=== PATIENT | female | born 1965 | race Caucasian/White ===

== ENCOUNTER 2021-05-05 15:40 | Outpatient (CLI) | payer OTHER, SELFPAY ==
--- NOTE | ~2021-05-05 | MM_ITS ---
EXAMINATION: MM screening dolores BI w maria teresa HISTORY: Screening TECHNIQUE: Craniocaudal and mediolateral oblique 3-D tomosynthesis images were obtained and synthetic 2-D images were generated. CAD analysis was submitted and interpreted. COMPARISON: 03/19/2012 BREAST PARENCHYMAL COMPOSITION: There are scattered areas of fibroglandular density. FINDINGS: There is no evidence of suspicious mass, calcification, or architectural distortion to sugg est malignancy in either breast. There has been no suspicious interval change. IMPRESSION: 1. No mammographic evidence of malignancy. 2. Recommend routine screening mammography in one year. BI-RADS Category 1: Negative Reviewed, dictated and finalized at location A.
== END 2021-05-05 15:41 | disposition home or self-care (01) ==
LOC: ANHIMG 15:43
PROVIDERS: PCP Family Medicine; Visit Provider Physician Assistant
DX: Z12.31 Encounter for screening mammogram for malignant neoplasm of breast (principal)
CPT/HCPCS: 77063; 77067

== ENCOUNTER 2021-05-28 09:18 | Outpatient (CLI) | payer OTHER, SELFPAY ==
--- NOTE | ~2021-05-28 | XR_ITS ---
EXAMINATION: XR elbow RT min 3V DATE: 05/28/2021 09:34 INDICATION: Nontraumatic right elbow pain TECHNIQUE: Anteroposterior, two oblique and lateral views of the right elbow were obtained. COMPARISON: None. FINDINGS: Alignment is normal. No fracture or joint effusion. Joint spaces are normal. No erosions or osteophyt osis. Soft tissues are unremarkable. IMPRESSION: 1. Normal right elbow radiographs. Reviewed, dictated and finalized at location B.
== END 2021-05-28 09:19 | disposition home or self-care (01) ==
PROVIDERS: PCP Family Medicine; Visit Provider Family Medicine
DX: M25.521 Pain in right elbow (principal)
CPT/HCPCS: 73080

== ENCOUNTER 2024-03-12 14:19 | Emergency (ER) | payer OTHER, SELFPAY ==
--- NOTE | 2024-03-12 14:20 | ED.URI ---
HPI - URI/Sore Throat General Chief Complaint: Ear Stated Complaint: EARS/COLD SYMPTOMS Time Seen by Provider: 03/12/24 14:28 Source: patient, RN notes reviewed and old records reviewed Mode of arrival: ambulatory Limitations: no limitations History of Present Illness HPI Narrative: 58-year-old female presents to the [facility] with complaints sinus congestion, pressure for 4 weeks. Has tried OTC medications with no relief. Reports ear pressure Denies fevers Treatments prior to arrival: cold medicine Related Data Allergies Allergy/AdvReac Type Severity Reaction Status Date / Time doxycycline Allergy Unknown Skin Verified 03/12/24 14:26 Reaction latex Allergy Unknown Unknown Verified 03/12/24 14:26 Sulfa (Sulfonamide Allergy Unknown Skin Verified 03/12/24 14:26 Antibiotics) Reaction sulfamethizole Allergy Unknown Unknown Verified 03/12/24 14:26 Review of Systems Review of Systems: All systems reviewed & are unremarkable except as noted in HPI and below Constitutional: Constitutional: Reports no additional constitutional complaints Eyes: Eyes: Reports no additional eye complaints ENT: Reports as per HPI, Reports otalgia, Reports sinus pressure and Denies sore throat Cardiovascular: Cardiovascular: Reports no additional cardiovascular complaints, Denies chest pain and Denies dyspnea Respiratory: Respiratory: Reports no additional respiratory complaints, Denies chest congestion, Denies cough and Denies dyspnea Gastrointestinal: Gastrointestinal: Reports no additional gastrointestinal complaints, Denies abdominal pain, Denies nausea and Denies vomiting Musculoskeletal: Musculoskeletal: Reports no additional musculoskeletal complaints Integumentary/Breasts: Skin/Breast: Reports system reviewed and no additional complaints, except as docu Neurologic: Reports system reviewed and no additional complaints, except as documented Psychiatric: Psychiatric: Reports no additional psychiatric complaints Allergic/Immunologic: Allergic/Immunologic: Reports no additional allergic/immunologic complaints [facility] Past Medical History Medical History History of COVID-19 Family History Family History Father Acute myocardial infarction Diabetes mellitus, Onset Age: 87 Family history of cardiovascular disease, Onset Age: 87 Family history of coronary artery disease, Onset Age: 87 Mother Acute myocardial infarction Family history of glaucoma Hypertension Family history of cardiovascular disease Family history of coronary artery disease Sibling Malignant neoplasm of prostate Social History Social History Social History: Caffeine-soda Smoking status: Never smoker Second hand tobacco smoke exposure: No Alcohol intake: current Alcohol use details: socially Substance use: never Substance use type: does not use Do You Feel Safe in your Home?: Yes Lack of Transportation: No Lack of Food: Never True Current Housing: I Have Housing Concerned About Future Housing: No Difficulty Paying Gas/Electric Bills: No Difficulty Paying for Meds: No Currently Unemployed: No Education: Associate Degree Difficulty w/ Childcare or Family Care: No Comments At the time of my signature, I reviewed and agree with the nursing past medical, surgical, social, and family history. There is no relevant family history pertinent to the patient complaint. Exam Const: General: cooperative, healthy appearing, comfortable, no acute distress, well developed, alert and well nourished Nutritional Appearance: well nourished Orientation/consciousness: patient oriented x3 Limitations: no limitations HENMT: Head: normal to inspection Ears: hearing grossly normal bilaterally, external ears normal, EAC's normal, mastoids normal, no periauricular
[2024-03-12 14:28] VITALS: BP 111/74; PULSE 67; RESP 16; TEMP 36.2; O2SAT 99
== END 2024-03-12 14:40 | disposition home or self-care (01) ==
PROVIDERS: Emergency Provider Nurse Practitioner; PCP Family Medicine
DX: J01.40 Acute pansinusitis, unspecified (principal); Z86.16 Personal history of COVID-19
CPT/HCPCS: 99213; G0463

== ENCOUNTER 2024-04-18 14:42 | Outpatient (CLI) | payer OTHER, SELFPAY ==
--- NOTE | ~2024-04-18 | MR_ITS ---
MR brain/brain stem wo/w con Ordering provider: Mia Ibanez MD History: 58 years Female with . brainstem lesion surveillance . Comparison: June 12, 2018 Technique: MRI brain was performed with and without contrast. 15 mL of MultiHance was injected IV. FINDINGS: BONES: Normal. CRANIOCERVICAL JUNCTION: normal. PITUITARY: Normal. MAJOR INTRACRANIAL VESSELS: Normal flow void. OPTIC NERVES AND CRANIAL NERVES VII AND VIII COMPLEXES: Grossly normal. BRAIN PARENCHYMA AND CSF SPACES: No visible white matter disease. The bright signal seen in the ri ght brachium pontis is again demonstrated with no change from previous examination. The brainstem and cerebellum are normal. No acute or chronic intracranial hemorrhage. No extra axial fluid collections . Diffusion weighted and ADC mapping images reveal no recent ischemia. No midline shift or mass effec t. No abnormal contrast enhancement. PARANASAL SINUSES: Normal. MASTOIDS: Normal SUPERFICIAL/SURROUNDING SOFT TISSUES: Normal. IMPRESSION: 1. The bright signal seen in the right brachium pontis measuring 8 x 8 mm is again demonstrated with no change from previous examination. 2. No abnormal enhancement. Reviewed, dictated and finalized at location A. IMPRESSION: 1. The bright signal seen in the right brachium pontis measuring 8 x 8 mm is a gain demonstrated with no change from previous examination. 2. No abnormal enhancement.
== END 2024-04-18 14:43 ==
LOC: MICIMG 14:43
PROVIDERS: PCP Family Medicine; Visit Provider Student in an Organized Health Care Education/Training Program
DX: R90.82 White matter disease, unspecified (principal)
CPT/HCPCS: 70553; A9577

== ENCOUNTER 2024-05-07 13:47 | Outpatient (CLI) | payer SELFPAY ==
--- NOTE | ~2024-05-07 | US_ITS ---
EXAMINATION: US right upper quadrant DATE: 05/07/2024 14:04 INDICATION: R19.7 - Diarrhea, unspecified TECHNIQUE: Multiple grayscale and Doppler ultrasound images of the right upper quadrant were obtained . COMPARISON: None available. FINDINGS: The visualized portions of the pancreas are normal. Echogenic liver parenchyma No surface n odularity. Normal hepatopetal flow in the main portal vein. The gallbladder is normal with no abnorma l wall thickening, pericholecystic fluid or stones. The common bile duct measures 5 mm. There was no sonographic Jane sign. IMPRESSION: Echogenic liver, most commonly due to steatosis but also can be seen with hepatitis and fibrosis. Reviewed, dictated and finalized at location K. IMPRESSION: Echogenic liver, most commonly due to steatosis but also can be seen with hepat itis and fibrosis.
== END 2024-05-07 13:48 ==
LOC: GOSHIMG 13:48
PROVIDERS: PCP Family Medicine; Visit Provider Family Medicine
DX: R19.7 Diarrhea, unspecified (principal); R10.9 Unspecified abdominal pain; R11.10 Vomiting, unspecified
CPT/HCPCS: 76705

== ENCOUNTER 2024-05-07 14:02 | Outpatient (CLI) | payer OTHER, SELFPAY ==
[2024-05-07 18:55] LABS: Hematocrit 44.6 % (37.0-47.0); Hemoglobin 14.7 g/dL (12.0-15.0); Mean Corpuscular Volume 94.1 fl (80-100); Mean Platelet Volume 11.6 fl (7.4-10.4); Platelet Count Result 220 k/mm3 (150-375); Red Blood Count 4.74 M/mm3 (4.2-5.4); White Blood Count 8.9 K/mm3 (4.5-10.0)
[2024-05-07 19:35] LABS: Alanine Aminotransferase 21 U/L (6-35); Albumin Level 4.3 g/dL (3.5-5.1); Alkaline Phosphatase 66 U/L (38-126); Amylase 51 U/L (30-110); Anion Gap 12 mmol/L (4-12); Aspartate Amino Transferase 34 U/L (14-36); Bilirubin,Total 1.4 mg/dL (0.2-1.3); Blood Urea Nitrogen 9 mg/dL (7-17); Calcium 9.8 mg/dL (8.4-10.2); Carbon Dioxide 25 mmol/L (22-30); Chloride 103 mmol/L (98-107); Estimated Glomerular Filt Rate 57; Glucose 83 mg/dL (65-110); Lipase 27 U/L (23-300); Potassium 4.2 mmol/L (3.4-5.0); Sodium 140 mmol/L (137-145)
== END 2024-05-07 14:03 | disposition home or self-care (01) ==
LOC: ANHGOSHLAB 14:04
PROVIDERS: PCP Family Medicine; Visit Provider Family Medicine
DX: R19.7 Diarrhea, unspecified (principal); R10.9 Unspecified abdominal pain; R11.10 Vomiting, unspecified
CPT/HCPCS: 36415; 80053; 82150; 83690; 85027

== ENCOUNTER 2024-05-13 12:55 | Outpatient (CLI) | payer OTHER, SELFPAY ==
--- NOTE | ~2024-05-13 | CT_ITS ---
EXAMINATION: CT abdomen pelvis w con DATE: 05/13/2024 13:30 INDICATION: Diarrhea, unspecified. Abdominal pain. Vomiting. TECHNIQUE: Computed tomography (CT) of the abdomen and pelvis was performed with 100 mL Omnipaque 350 intravenous contrast. Automated exposure control and iterative reconstruction technique were employe d. The dose-length product was 421.75 mGy-cm. COMPARISON: Abdomen ultrasound 05/07/2024 FINDINGS: The visualized portions of the lung bases demonstrate mild atelectasis. No pleural effusion . The heart size is normal. No pericardial effusion. The liver, gallbladder, spleen, pancreas, adrena l glands, and kidneys are normal. There is diverticulosis of the colon without evidence of diverticul itis. The appendix is normal. There are no pathologically enlarged lymph nodes. There is no free intr aperitoneal fluid. There is mild lumbar spondylosis. There is a chronic compression fracture of T10. IMPRESSION: 1. No etiology for the patient's symptoms. Reviewed, dictated and finalized at location A.
== END 2024-05-13 12:56 ==
LOC: MICIMG 12:59
PROVIDERS: PCP Family Medicine; Visit Provider Family Medicine
DX: R10.9 Unspecified abdominal pain (principal); R11.10 Vomiting, unspecified; R19.7 Diarrhea, unspecified
CPT/HCPCS: 74177; Q9967

== ENCOUNTER 2025-09-02 14:54 | Outpatient (CLI) | payer OTHER, SELFPAY ==
--- NOTE | ~2025-09-02 | MR_ITS ---
EXAMINATION: MR brain/brain stem wo/w con DATE: 09/02/2025 15:36 INDICATION: Epilepsy, unspecified, not intractable. TECHNIQUE: Magnetic resonance imaging (MRI) of the brain and brainstem was performed without and with 15 mL MultiHance intravenous contrast. COMPARISON: Brain MRI 04/18/2024, 06/12/2018, 07/30/13 FINDINGS: There is an ill-defined 8 mm lesion of increased T2-weighted signal intensity in the right middle cerebellar peduncle. No contrast enhancement. There is no acute ischemic infarct or intracranial hemorrhage. The ventricles are normal in size. The paranasal sinuses are clear. There is normal. The mastoid air cells are normal. IMPRESSION: 1. Nonspecific lesion in right middle cerebellar peduncle, stable from 07/30/2013. This finding is most likely chronic small vessel ischemic disease or demyelinating disease. Reviewed, dictated and finalized at location E. [employer]PER[employer] IMPRESSION: 1. Nonspecific lesion in right middle cerebellar peduncle, stable from 07/30/20 13. This finding is most likely chronic small vessel ischemic disease or demyel inating disease.
== END 2025-09-02 14:55 | disposition home or self-care (01) ==
PROVIDERS: PCP Family Medicine; Visit Provider Psychiatry & Neurology Neurology
DX: G40.909 Epilepsy, unspecified, not intractable, without status epilepticus (principal); R90.82 White matter disease, unspecified; R27.0 Ataxia, unspecified
CPT/HCPCS: 70553; A9577